=== PATIENT | male | born 1995 | race Caucasian/White ===

== ENCOUNTER 2018-12-05 17:28 | Emergency (ER) | payer OTHER ==
[2018-12-05 17:40] VITALS: BP 136/80; PULSE 94; TEMP 98.6; BMI 24.2
--- NOTE | 2018-12-05 19:14 | PDOC ---
History of Present Illness - General Chief Complaint: Laceration Stated Complaint: FINGER LACERATION Time Seen by Provider: 12/05/18 19:03 History Source: Patient Exam Limitations: No Limitations - History of Present Illness Initial Comments: 12/05/18 19:09 Patient was doing some home improvement projects today when large pile of sharp metal fell onto his hand incising his left index finger dorsum at PIP. States blood profusely held pressure which stopped. States needs tenderness Occurred: reports: just prior to arrival, this afternoon Severity: reports: mild, moderate Pain Location: reports: upper extremity (left index finger ) Loss of Consciousness: no loss of consciousness Past History - Travel Traveled outside of the country in the last 30 days: No Close contact w/someone who was outside of country & ill: No - Past Medical History Allergies/Adverse Reactions: Allergies Allergy/AdvReac Type Severity Reaction Status Date / Time No Known Allergies Allergy Verified 12/05/18 17:40 Home Medications: Ambulatory Orders NK [No Known Home Medication] 12/05/18 COPD: No - Immunization History Immunization Up to Date: No - Suicide/Smoking/Psychosocial Hx Smoking History: Never smoked Review of Systems - Review of Systems Able to Perform ROS?: Yes Is the patient limited Egyptian proficient: Yes Constitutional: Yes: Symptoms Reported, See HPI, Malaise HEENTM: No: Symptoms Reported Musculoskeletal: Yes: Symptoms Reported, See HPI, Joint Pain Neurological: No: Symptoms reported All Other Systems: Reviewed and Negative *Physical Exam - Vital Signs Last Vital Signs Temp Pulse Resp BP Pulse Ox 98.6 F 94 H 18 136/80 99 12/05/18 17:36 12/05/18 17:36 12/05/18 17:36 12/05/18 17:36 12/05/18 17:36 - Physical Exam General Appearance: Yes: Nourished, Appropriately Dressed, Apparent Distress, Mild Distress HEENT: positive: FAWN, Normal ENT Inspection, TMs Normal, Pharynx Normal Neck: positive: Supple. negative: Tender Extremity: positive: Normal Capillary Refill ( distal digit), Normal Inspection , Normal Range of Motion Integumentary: positive: Normal Color, Other (1 cm laceration to the proximal aspect of the PIP left index finger, has full range of motion finger, neurovascular intact to) Neurologic: positive: route sales driver II-XII NML intact, Fully Oriented, Alert, Normal Mood/ Affect, Normal Response, Motor Strength 5/5 Moderate Sedation - Procedure Monitoring Vital Signs: Procedure Monitoring Vital Signs Temperature 98.6 F 12/05/18 17:36 Pulse Rate 94 H 12/05/18 17:36 Respiratory Rate 18 12/05/18 17:36 Blood Pressure 136/80 12/05/18 17:36 O2 Sat by Pulse Oximetry (%) 99 12/05/18 17:36 Procedures - Laceration/Wound Repair Left Finger Wound Length: to 2.5 cm Wound Explored: clean Wound's Depth, Shape: superficial, linear Irrigated w/ Saline: Yes Betadine Prep: Yes Anesthesia: 1% Lidocaine Wound Repaired With: Sutures Suture Size/Type: 5:0 Number of Sutures: 5 Layer Closure: No Sling Applied: Yes Progress Note - Progress Note Progress Note: finger laceration- repaired, Tetanus / diphtheria/ pertusuisi updated./ *DC/Admit/Observation/Transfer Diagnosis at time of Disposition: Finger laceration Qualifiers: Encounter type: initial encounter Finger: index finger Damage to nail status: without damage Foreign body presence: without foreign body Laterality: left Qualified Code(s): S61.211A - Laceration without foreign body of left index finger without damage to nail, initial encounter - Discharge Dispostion Disposition: HOME Condition at time of disposition: Stable Decision to Admit order: No - Referrals - Patient Instructions Printed Discharge Instructions: DI for Laceration Repair Additional Instructions: Rest, elevate, avoid strenuous activity or heavy lifting until sutures are removed Leave dressing on for the next 24 hours, Then may remove dressing gently and wash area with soap and water. Reapply bacitracin ointment and dressing daily for the next 5 days On day #6 keep the wound protected and cover as needed until sutures are removed allowing wound to start to dry May use Tylenol or Motrin for pain relief tetanus/diphtheria/pertussis booster was updated today Suture removal in : 7-10 Days - Post Discharge Activity
[2018-12-05] MEDS ORDERED: DIPHTH,PERTUSS(ACELL),TET 0.5 ML DISP.SYRIN IM ONE ×2 (19:32→19:35)
== END 2018-12-05 19:45 | disposition home or self-care (01) ==
LOC: JERFT 17:28
PROC: 3E0234Z Introduction of Serum, Toxoid and Vaccine into Muscle, Percutaneous Approach (ICD-10-PCS; principal; 2018-12-05)
PROC: 0HQGXZZ Repair Left Hand Skin, External Approach (ICD-10-PCS; 2018-12-05)
DX: S61.211A Laceration without foreign body of left index finger without damage to nail, initial encounter (principal); W26.8XXA Contact with other sharp object(s), not elsewhere classified, initial encounter; Y93.E9 Activity, other interior property and clothing maintenance; Y92.038 Other place in apartment as the place of occurrence of the external cause; Y99.8 Other external cause status
CPT/HCPCS: 12001; 90471; 90715; 99281-25